=== PATIENT | male | born 1990 | race Caucasian/White ===

== ENCOUNTER 2016-09-12 16:45 | Emergency (ER) | payer MEDICAID ==
--- OUTSIDE RECORDS SUMMARY | 2016-09-12 17:05 | XMS REPORT | Continuity of Care Document ---
:1990 Author Organization [facility] Address Unavailable [place] [address] Care Team Providers Name Role Phone Unavailable Primary Care Provider Unavailable Source Comments This disclosure is being made pursuant to the [employer] program and maynot contain all information available regarding this patient.[facility] Active Allergies and Adverse Reactions Not on File Current Medications Be aware that medications may not be up to date as of this document. Alwaysverify current medications with the patient. Not on file Active Problems Not on file Most Recent Encounters Date Type Specialty Providers Description 06/17/2016 Data Import Immunizations Name Dates Previously Given Next Due PPD Test 01/05/2002 Td, preservative free 01/05/2002 Social History Tobacco Use Types Packs/Day Years Used Date Never Smoker Last Filed Vital Signs Vital Sign Reading Time Taken Blood Pressure 116/78 10/03/2014 3:25 PM CDT Pulse 88 10/03/2014 3:25 PM CDT Temperature 36.8 C (98.2 F) 10/03/2014 3:25 PM CDT Respiratory Rate 18 10/03/2014 3:25 PM CDT Height 1.778 m (5' 10") 10/03/2014 3:25 PM CDT Weight 119.75 kg (264 lb) 10/03/2014 3:25 PM CDT Body Mass Index 37.88 10/03/2014 3:25 PM CDT Oxygen Saturation - - Plan of Care Health Maintenance Due Date Last Done Comments HPV Vaccine (9-26YO) (1 of 3 - Male 3 Dose Series) 2001 Tetanus/Pertussis (2 - Tdap) 2009 01/05/2002 Influenza Immunization (#1) 2016 Results from Last 3 Months Not on file
--- OUTSIDE RECORDS SUMMARY | 2016-09-12 17:06 | XMS REPORT | Continuity of Care Document ---
:1990 Author Organization [facility] ([facility]) Address [address] [place] [address] Phone [phone] Care Team Providers Name Role Phone Juanis Edmond Primary Care Provider [phone] Source Comments This disclosure is being made pursuant to the Care Everywhere program, applicable federal and state laws, and may not contain all informaitonavailable regarding this patient.[facility] ([facility]) Active Allergies and Adverse Reactions Allergen Noted Date Severity Reactions Comments Sulfadoxine Conjunctivitis,Pruritus Current Medications Prescription Sig. Disp. Refills Start Date End Date Status aripiprazole 10 mg take 10 mg by Active tablet mouth daily. clonazePAM 0.5 mg tablet take 0.25 mg by Active mouth daily. Take 0.25 mg (1/2 Tab) [place]-3 Fatty Acids take 1 Cap by 10/21/2008 Active (FISH OIL CONCENTRATE) mouth daily. methylphenidate take 36 mg by Active (CONCERTA) 36 mg CR mouth Every tablet morning. methylphenidate 54 mg CR take 54 mg by Active tablet mouth Every morning. ACETYLCARNITINE HCL take by mouth Active (ACETYL L-CARNITINE PO) daily. TAKE 500 MG clindamycin (CLEOCIN) take 1 Cap by 28 Cap 0 12/16/2008 Active 300 mg capsule mouth 4 times daily for 7 days. Indications: infection chlorhexidine (PERIDEX) take 5 mL by mouth 4731 mL 0 12/16/2008 Active 0.12 % solution 2 times daily. Swish and spit twice a day, then nothing by mouth for 30 minutes., Indications: Mouth Infection Prevention Active Problems Not on file Social History Tobacco Use Types Packs/Day Years Used Date Never Assessed Last Filed Vital Signs Vital Sign Reading Time Taken Blood Pressure 117/67 12/16/2008 4:36 PM CDT Pulse 86 12/16/2008 4:36 PM CDT Temperature 36.5 C (97.7 F) 11/07/2008 8:00 AM CDT Respiratory Rate 20 11/07/2008 8:00 AM CDT Height 1.74 m (5' 8.5") 10/21/2008 11:09 AM CDT Weight 66 kg (145 lb 8.1 oz) 11/06/2008 6:54 PM CDT Body Mass Index - - Oxygen Saturation 98% 11/06/2008 12:45 PM CDT Plan of Care Health Maintenance Due Date Last Done Comments Hepatitis B Vaccine (1 of 3 - Primary Series) 1990 HPV Vaccine (1 of 3 - Male 3 Dose Series) 2001 Tdap Vaccine 2001 Lipid Disorder Screening 2008 MMR Vaccine 2008 Td Vaccine 2008 Varicella Vaccine (1 of 2 - Adult - No Evidence of 2008 Immunity) Influenza Vaccine: Seasonal (#1) 02/02/2016 Results from Last 3 Months Not on file
--- NOTE | 2016-09-12 17:23 | ERNOTE ---
Medical Problem HPI - Narrative Date of Service: 09/12/16 - General Chief Complaint: Nausea/Vomiting Time Seen by Provider: 09/12/16 16:51 Source: patient Exam Limitations: no limitations - Immun/Allergies/Home Medications Immunizations: IMMUNIZATION HX Immunizations Up to Date Yes History of Influenza Vaccine No Hx Pneumococcal Vaccination No Allergies/Adverse Reactions: Allergies Sulfa (Sulfonamide Antibiotics) Allergy (Unknown, Verified 09/12/16 16:52) Home Medications: HOME MEDICATIONS metFORMIN HCL [Glucophage] 500 mg PO BID 06/02/16 [Last Taken Unknown] Cephalexin [Keflex] 500 mg PO DAILY 09/12/16 [Last Taken Unknown] - History of Present History Narrative: Pt. comes in with c/o intermittent R mid abd pain that started two days after he developed NVD three days ago. Pt. denies any fever, chills, inability to eat or drink, constipation, recent cough or cold, chest pain, sob,alleviating or aggravating factors.Pt. has a hx of fatty liver disease and diabetes. Review of Systems - Review of Systems Constitutional: Present: no symptoms reported. Absent: recent illness, fever, chills, weakness, fatigue, malaise EYE: Present: no symptoms reported ENT: Present: no symptoms reported Respiratory: Present: no symptoms reported. Absent: shortness of breath, cough , wheezing Cardiology: Present: no symptoms reported. Absent: chest pain, palpitations, edema Gastrointestinal/Abdominal: Present: no symptoms reported Genitourinary: Present: no symptoms reported Musculoskeletal: Present: no symptoms reported. Absent: back pain, joint pain Skin: Present: no symptoms reported Neurological: Present: no symptoms reported. Absent: anxiety, headache, numbness, tingling All Other Systems: All systems neg except as marked - Patient's Past Medical History Patient History - Medical: Diabetes Type 2, Obesity Patient History - Cardiac/Respiratory: No pertinent hx Patient History - Cancer: No Hx of Cancer Patient History - Surgical Procedures: Ear Tubes, T & A, Other Patient History - Other: None - Social History Living Situations: home Psych History: Hx of Depression Smoking Status: Current every day smoker Have you smoked in the past 12 months: Yes Alcohol Use: rarely Drug Use: none - Immunizations Immunizations Up to Date: Yes Hx Pneumococcal Vaccination: No History of Influenza Vaccine: No Physical Exam - Physical Exam General Appearance: Present: wd/wn, alert, no apparent distress Eye Exam: Normal inspection: bilateral, PERRL: bilateral, EOMI: bilateral Ears, Nose, Throat: Present: normal ENT inspection, normal pharynx Neck: Present: normal inspection, nontender. Absent: lymphadenopathy (R), lymphadenopathy (L) Respiratory: Present: no respiratory distress, normal breath sounds, no accessory muscle use, chest nontender, lungs clear Cardiovascular/Chest: Present: regular rate, rhythm, no murmur, normal peripheral pulses Gastrointestinal/Abdominal: Present: normal bowel sounds, nondistended, soft, no organomegaly, tenderness - RM abdomen pain Back Exam: Present: normal inspection, normal range of motion, no CVA tenderness , no vertebral tenderness Extremity Exam: Present: normal inspection, non-tender, normal range of motion, no edema Neurological Exam: Present: alert, oriented, normal mood/affect Skin Exam: Present: normal color, warm/dry. Absent: pallor, skin rash ED Progress - Date and Time Seen: Date and Time: 09/12/16 20:45 Discussed changes available to patient for diabetic medication change and he would like to discuss with his PCP. Educatied pt. on decreasing fat in diet. Pt. able to hold down water and has not vomited since arrival. - Results and Orders Patient's Lab Results:: I have reviewed the patient's lab results. - Vital Signs Patient's Vital Signs:: I have reviewed the patient's vital signs. Vital Signs: Vital Signs 09/12/16 16:49 Temperature 36.0 C L Pulse Rate 104 H Respiratory 12 Rate Blood Pressure 159/88 O2 Sat by Pulse 96 Oximetry - CT/Ultrasound CT/Ultrasound Narrative: CT abd with diffuse fatty liver disease. - Progress/Reassessment Chief Complaint: Nausea/Vomiting Departure - Departure Clinical Impression: Fatty liver disease, nonalcoholic Diabetes Qualifiers: Diabetes mellitus type: type 2 Diabetes mellitus complication status: without complication Diabetes mellitus intermediate insulin use: without terminal makeup operator use Qualified Code(s): E11.9 - Type 2 diabetes mellitus without complications Disposition: Home self-care Condition: Good Instructions: Hepatomegaly, Liver Failure, Nonalcoholic Fatty Liver Disease Diet Additional Instructions: Please follow up with primary provider as planned Referrals: [Primary Care Provider] -
[2016-09-12 17:24] LABS: Hematocrit 45.7 % (42.0-52.0); Hemoglobin 15.4 gm/dL (13.5-18.0); Mean Cell Volume 81.8 fl (78-100); Mean Corpuscular Hemoglobin 27.5 pg (27-31); Mean Corpuscular Hgb Conc 33.7 g/dl (32-36); Neutrophil # 6.8 K/mm3 (1.3-6.0); Neutrophil % 60.4 % (42-75.0); Platelet Count 291 K/mm3 (150-450); Red Blood Count 5.59 M/mm3 (4.7-6.0); Red Cell Distribution Width 12.4 % (11.5-14.0); White Blood Count 11.3 K/mm3 (4.0-10.5)
[2016-09-12 17:36] LABS: Albumin * 4.1 gm/dl (3.4-5.0); Anion Gap 16.1 mmol/L (6.8-13.8); BUN/Creatinine Ratio 10.2 (9.0-21.6); Bilirubin, Total 0.3 mg/dL (0.0-1.1); Ca. Corrected For Albumin 9.6 mg/dL (8.4-10.2); Potassium 4.1 mmol/L (3.4-4.6)
[2016-09-12 17:41] LABS: Urine Appearance Clear; Urine Bilirubin Negative (NEGATIVE); Urine Blood 10 /ul (NEGATIVE); Urine Color Yellow; Urine Ketone Negative (NEGATIVE); Urine Nitrite Negative (NEGATIVE); Urine Protein Negative (NEGATIVE); Urine Urobilinogen Normal (NORMAL); Urine WBC None Seen /hpf (0-5)
[2016-09-12 17:42] LABS: Urine Bacteria None Seen; Urine RBC 0-5 /hpf (0-5)
[2016-09-12] MEDS ORDERED: DIATRIZOATE MEGLU/DIATRIZO SOD 30 ML BTL ONE (18:08)
[2016-09-12 18:16] VITALS: BP 155/98
== END 2016-09-12 21:07 | disposition home or self-care (01) ==
LOC: ER 16:45
DX: K76.0 Fatty (change of) liver, not elsewhere classified (principal); E11.9 Type 2 diabetes mellitus without complications; Z72.0 Tobacco use

== ENCOUNTER 2016-09-24 22:08 | Emergency (ER) | payer MEDICAID ==
[2016-09-24 22:20] VITALS: BP 146/79
--- OUTSIDE RECORDS SUMMARY | 2016-09-24 22:30 | XMS REPORT | Continuity of Care Document ---
:1990 Author Organization [facility] ([facility]) Address [address] [place] [address] Phone [phone] Care Team Providers Name Role Phone Juanis Edmond Primary Care Provider [phone] Source Comments This disclosure is being made pursuant to the Care Everywhere program, applicable federal and state laws, and may not contain all informaitonavailable regarding this patient.[facility] ([facility]) Active Allergies and Adverse Reactions Allergen Noted Date Severity Reactions Comments Sulfadoxine Conjunctivitis,Pruritus Current Medications Prescription Sig. Disp. Refills Start Date End Date Status aripiprazole 10 mg take 10 mg by Active tablet mouth daily. clonazePAM 0.5 mg tablet take 0.25 mg by Active mouth daily. Take 0.25 mg (1/2 Tab) [place]-3 Fatty Acids take 1 Cap by 10/21/2008 [...]
--- OUTSIDE RECORDS SUMMARY | 2016-09-24 22:30 | XMS REPORT | Continuity of Care Document ---
:1990 Author Organization [facility] Address Unavailable [place] [address] Care Team Providers Name Role Phone Unavailable Primary Care Provider Unavailable Source Comments This disclosure is being made pursuant to the [employer] program and maynot contain all information available regarding this patient.[facility] Active Allergies and Adverse Reactions Not on File Current Medications Be aware that medications may not be up to date as of this document. Alwaysverify current medications with the patient. Not on file Active Problems Not on file Immunizations Name Dates Previously Given Next Due [...]
--- NOTE | 2016-09-24 22:33 | ERNOTE ---
Headache ER HPI - Narrative Date of Service: 09/24/16 - General Presenting Symptoms: headache Time Seen by Provider: 09/24/16 22:25 Source: patient Exam Limitations: no limitations - Immun/Allergies/Home Medications Immunizations: IMMUNIZATION HX Immunizations Up to Date No History of Influenza Vaccine No Hx Pneumococcal Vaccination No Allergies/Adverse Reactions: Allergies Sulfa (Sulfonamide Antibiotics) Allergy (Unknown, Verified 09/24/16 22:20) Home Medications: HOME MEDICATIONS metFORMIN HCL [Glucophage] 500 mg PO BID 06/02/16 [Last Taken Unknown] Cephalexin [Keflex] 500 mg PO DAILY 09/12/16 [Last Taken Unknown] - History of Present Illness Narrative: 25 year old male states that he became ill at work this evening with headache and then had 4 episodes of vomiting. He's had some congestion and just generally not feeling well Quality: Present: achy Severity Maximum: Present: mild Review of Systems - Review of Systems Constitutional: Present: See HPI EYE: Present: no symptoms reported ENT: Present: See HPI Respiratory: Present: See HPI Cardiology: Present: no symptoms reported Gastrointestinal/Abdominal: Present: See HPI Genitourinary: Present: no symptoms reported Musculoskeletal: Present: no symptoms reported Skin: Present: no symptoms reported Neurological: Present: no symptoms reported Endocrine: Present: no symptoms reported Hematologic/Lymphatic: Present: no symptoms reported Psych: Present: no symptoms reported All Other Systems: All systems neg except as marked - Patient's Past Medical History Patient History - Medical: Diabetes Type 2, Obesity, Other Patient History - Cardiac/Respiratory: No pertinent hx Patient History - Cancer: No Hx of Cancer Patient History - Surgical Procedures: Ear Tubes, T & A, Other Patient History - Other: None - Social History Living Situations: home Psych History: Hx of Depression Smoking Status: Former smoker Have you smoked in the past 12 months: Yes Alcohol Use: rarely Drug Use: none - Immunizations Immunizations Up to Date: No Hx Pneumococcal Vaccination: No History of Influenza Vaccine: No Physical Exam - Physical Exam General Appearance: Present: no apparent distress, obese Eye Exam: Normal inspection: bilateral, PERRL: bilateral Ears, Nose, Throat: Present: normal ENT inspection, H, normal pharynx Neck: Present: normal inspection, nontender Respiratory: Present: no respiratory distress, normal breath sounds, no accessory muscle use, chest nontender, lungs clear Cardiovascular/Chest: Present: regular rate, rhythm, no murmur, normal peripheral pulses Gastrointestinal/Abdominal: Present: normal bowel sounds, nontender, nondistended, soft, no organomegaly Rectal Exam: Present: deferred Back Exam: Present: normal inspection, normal range of motion, no CVA tenderness , no vertebral tenderness Neurological Exam: Present: alert, oriented, normal mood/affect, no motor/ sensory deficits Skin Exam: Present: normal color, warm/dry Lymphatic Exam: Present: no adenopathy ED Progress - Results and Orders Patient's Lab Results:: I have reviewed the patient's lab results. - Vital Signs Patient's Vital Signs:: I have reviewed the patient's vital signs. Vital Signs: Vital Signs 09/24/16 22:14 Temperature 36.5 C Pulse Rate 102 H Respiratory 18 Rate Blood Pressure 146/79 O2 Sat by Pulse 96 Oximetry - Progress/Reassessment Chief Complaint: Headache Progress:: Improved Progress Note-Subjective: 09/24/16 23:06 Negative strep negative flu CBC consistent with a viral illness Departure Clinical Impression: Viral syndrome - Departure Disposition: Home self-care Condition: Fair Instructions: Rehydration, Adult, Form - Return To Work
[2016-09-24 22:40] LABS: Hematocrit 42.6 % (42.0-52.0); Hemoglobin 14.5 gm/dL (13.5-18.0); Mean Cell Volume 82.9 fl (78-100); Mean Corpuscular Hemoglobin 28.2 pg (27-31); Mean Platelet Volume 9.8 fl (6.0-9.5); Neutrophil # 6.6 K/mm3 (1.3-6.0); Neutrophil % 56.2 % (42-75.0); Platelet Count 282 K/mm3 (150-450); Red Blood Count 5.14 M/mm3 (4.7-6.0); Red Cell Distribution Width 12.3 % (11.5-14.0); White Blood Count 11.8 K/mm3 (4.0-10.5)
== END 2016-09-24 23:14 | disposition home or self-care (01) ==
LOC: ER 22:08
DX: B97.89 Other viral agents as the cause of diseases classified elsewhere (principal); E11.9 Type 2 diabetes mellitus without complications; Z87.891 Personal history of nicotine dependence

== ENCOUNTER 2016-09-26 16:31 | Emergency (ER) | payer MEDICAID ==
[2016-09-26 16:31] VITALS: BP 146/79
[2016-09-26] MEDS ORDERED: TETRACAINE HCL 150 DROP BTL ONE (16:57)
--- OUTSIDE RECORDS SUMMARY | 2016-09-26 17:04 | XMS REPORT | Continuity of Care Document ---
:1990 Author Organization [email or web address] Address Unavailable [place] [address] Care Team Providers Name Role Phone Unavailable Primary Care Provider Unavailable Source Comments This disclosure is being made pursuant to the [employer] program and maynot contain all information available regarding this patient.[email or web address] Active Allergies and Adverse Reactions Not on [...]
--- OUTSIDE RECORDS SUMMARY | 2016-09-26 17:04 | XMS REPORT | Continuity of Care Document ---
:1990 Author Organization [facility] ([facility]) Address [address] [place] [address] Phone [phone] Care Team Providers Name Role Phone Juanis Edmond Primary Care Provider [phone] Source Comments This disclosure is being made pursuant to the Care Everywhere program, applicable federal and state laws, and may not contain all informaitonavailable regarding this patient.[facility] ([facility]) Active Allergies and Adverse Reactions Allergen Noted Date Severity Reactions Comments Sulfadoxine Conjunctivitis,Pruritus Current Medications Prescription Sig. Disp. Refills Start Date End Date Status aripiprazole 10 mg take 10 mg by Active tablet mouth daily. clonazePAM 0.5 mg tablet take 0.25 mg by Active mouth daily. Take 0.25 mg (1/2 Tab) [place]-3 Fatty Acids take 1 Cap by 10/21/2008 [...]
[2016-09-26] MEDS ORDERED: TETRACAINE HCL 150 DROP BTL RIGHTEYE ONE (17:25)
--- NOTE | 2016-09-26 18:06 | ERNOTE ---
ENT HPI Presenting Symptoms: eye pain Time Seen by Provider: 09/26/16 16:54 Source: patient Exam Limitations: no limitations - Immun/Allergies/Home Medications Immunizations: IMMUNIZATION HX Immunizations Up to Date No History of Influenza Vaccine No Hx Pneumococcal Vaccination No Allergies/Adverse Reactions: Allergies Allergy/AdvReac Type Severity Reaction Status Date / Time Sulfa (Sulfonamide Allergy Unknown Verified 09/26/16 16:48 Antibiotics) Home Medications: HOME MEDICATIONS metFORMIN HCL [Glucophage] 500 mg PO BID 06/02/16 [Last Taken Unknown] Cephalexin [Keflex] 500 mg PO DAILY 09/12/16 [Last Taken Unknown] Erythromycin Base [Erythromycin Ophthalmic Ointment] 1 cm RIGHTEYE QID #1 gm [Last Taken Unknown] HYDROcodone/ACETAMINOPHEN [Hydrocodon-Acetaminophen 5-325] 1 each PO BID PRN #3 tablet 09/26/16 [Last Taken Unknown] - History of Present Illness Narrative: 25-year-old male presented to the emergency room for right eye pain. Patient states when he woke up this morning he rubbed his right eye. Right eye has crust and pain. Light sensitive and tearing present. Date (Duration): 09/26/16 Severity: Present: mild ENT Location: Present: eye (R) Prearrival Treatment: Present: no prearrival treatment Modifying Factors - Improves: Reports: rest, lying down Modifying Factors - Worsens: Reports: other - light Associated Symptoms - ENT: Reports: headache, other - light sensitive. Denies: foreign body Review of Systems - Review of Systems Constitutional: Present: no symptoms reported EYE: Present: see HPI, eye pain, eye discharge, tearing. Absent: blurred vision , double vision, vision changes ENT: Present: no symptoms reported Respiratory: Present: no symptoms reported Cardiology: Present: no symptoms reported Gastrointestinal/Abdominal: Present: no symptoms reported Genitourinary: Present: no symptoms reported Musculoskeletal: Present: no symptoms reported Skin: Present: no symptoms reported Neurological: Present: no symptoms reported Endocrine: Present: no symptoms reported Hematologic/Lymphatic: Present: no symptoms reported Psych: Present: no symptoms reported - Patient's Past Medical History Patient History - Medical: Diabetes Type 2, Obesity, Other Patient History - Cardiac/Respiratory: No pertinent hx Patient History - Cancer: No Hx of Cancer Patient History - Surgical Procedures: Ear Tubes, T & A, Other Patient History - Other: None - Social History Living Situations: home Psych History: Hx of Depression Smoking Status: Former smoker Smoking Stop Date: 09/20/16 Alcohol Use: rarely Drug Use: none - Immunizations Immunizations Up to Date: No Hx Pneumococcal Vaccination: No History of Influenza Vaccine: No Physical Exam - Physical Exam Narrative: Patient's right eye is reddened. 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 General Appearance: Present: wd/wn Eye Exam: PERRL: bilateral, Sclera injection: right, Eye drainage: right Ears, Nose, Throat: Present: normal ENT inspection Neck: Present: normal inspection Respiratory: Present: no respiratory distress Cardiovascular/Chest: Present: regular rate, rhythm Gastrointestinal/Abdominal: Present: normal bowel sounds Extremity Exam: Present: normal inspection Neurological Exam: Present: alert, oriented, normal mood/affect Skin Exam: Present: normal color Lymphatic Exam: Present: no adenopathy ED Progress - Vital Signs Vital Signs: Vital Signs 09/26/16 16:41 Temperature 36.5 C Pulse Rate 102 H Respiratory 14 Rate Blood Pressure 146/79 O2 Sat by Pulse 96 Oximetry - Progress/Reassessment Chief Complaint: Eye Injury/Trauma Progress:: Improved Procedures Eye Location: right eye Tetracaine Drops Administered: Yes Cyclogel 2 Drops Administered: right eye Eye - Cornea: Right: examined w/fluorescein, fluorescein dye uptake, abrasion - to the left of eye, midline. Eye Irrigated w/ Saline (mls): 10 Antibiotic Ointment/Drps Admin: right eye Complications: Pt collins procedure well Departure Clinical Impression: Corneal abrasion, right Qualifiers: Encounter type: initial encounter Qualified Code(s): S05.01XA - Injury of conjunctiva and corneal abrasion without foreign body, right eye, initial encounter - Departure Disposition: Home Follow Up Needed Condition: Stable Instructions: Form - Excuse from Work, School, or Physical Activity, Corneal Abrasion, [id number] Additional Instructions: Take his current home medications. Take antibiotics as directed. May take when necessary pain medications for pain. Follow-up with eye doctor in a few days if needed. Tonight go home and rest. return To the emergency room if symptoms persist or if pain is not controlled with pain medication. Prescriptions: Erythromycin Base [Erythromycin Ophthalmic Ointment] 1 cm KINZAE NELSOND #1 gm HYDROcodone/ACETAMINOPHEN [Hydrocodon-Acetaminophen 5-325] 1 each PO BID PRN #3 tablet PRN Reason: pain
== END 2016-09-26 17:50 | disposition home or self-care (01) ==
LOC: ER 16:31
DX: S05.01XA Injury of conjunctiva and corneal abrasion without foreign body, right eye, initial encounter (principal); E11.9 Type 2 diabetes mellitus without complications; Z72.0 Tobacco use

== ENCOUNTER 2016-10-29 23:44 | Emergency (ER) | payer MEDICAID ==
--- OUTSIDE RECORDS SUMMARY | 2016-10-30 01:08 | XMS REPORT | Continuity of Care Document ---
:1990 Author Organization [facility] ([facility]) Address [address] [place] [address] Phone [phone] Care Team Providers Name Role Phone Juanis Edmond Primary Care Provider [phone] Source Comments This disclosure is being made pursuant to the Care Everywhere program, applicable federal and state laws, and may not contain all informaitonavailable regarding this patient.[facility] ([facility]) Active Allergies and Adverse Reactions Allergen Noted Date Severity Reactions Comments Sulfadoxine Conjunctivitis,Pruritus Current Medications Prescription Sig. Disp. Refills Start Date End Date Status aripiprazole 10 mg take 10 mg by Active tablet mouth daily. clonazePAM 0.5 mg tablet take 0.25 mg by Active mouth daily. Take 0.25 mg (1/2 Tab) [place]-3 Fatty Acids take 1 Cap by 10/21/2008 [...]
--- OUTSIDE RECORDS SUMMARY | 2016-10-30 01:08 | XMS REPORT | Continuity of Care Document ---
:1990 Author Organization [facility] Address Unavailable [place] [address] Care Team Providers Name Role Phone Unavailable Primary Care Provider Unavailable Source Comments This disclosure is being made pursuant to the [email or web address] program and maynot contain all information available regarding this patient.[facility] Active Allergies and Adverse Reactions Not on File Current Medications Be aware that medications may not be up to date as of this document. Alwaysverify current medications with the patient. Not on file Active Problems Not on file Most Recent Encounters Date Type Specialty Providers Description 09/27/2016 Data Import Immunizations Name Dates Previously Given [...]
--- NOTE | 2016-10-30 01:09 | ERNOTE ---
Medical Problem HPI - Narrative Date of Service: 10/30/16 - General Chief Complaint: Nausea/Vomiting Time Seen by Provider: 10/30/16 01:02 Source: patient, other - S.O. Exam Limitations: no limitations - Immun/Allergies/Home Medications Immunizations: IMMUNIZATION HX Immunizations Up to Date Yes History of Influenza Vaccine No Hx Pneumococcal Vaccination No Allergies/Adverse Reactions: Allergies Sulfa (Sulfonamide Antibiotics) Allergy (Unknown, Verified 10/30/16 00:18) Home Medications: HOME MEDICATIONS metFORMIN HCL [Glucophage] 1,000 mg PO BID 06/02/16 [Last Taken Unknown] Ondansetron [Zofran Odt] 4 mg PO Q6H PRN #7 tab 10/30/16 [Last Taken Unknown] - History of Present History Narrative: NAUSEA AND VOMITING AND DIARRHEA FOR THE PAST 2-3 HOURS. SAYS SHE HAD A APSXGER CHELSEA HAMBURGER EARLIER TONIGHT. NO FEVER. 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 HE IS NIDDM AND ON ORAL MEDS BUT DOES NOT FOLLOW HIS BGM AND HAS NO IDEA WHERE IS CURRENTLY STANDS. HE V X 1 AND HAD D X 3 AND IS STILL NAUSEATED. Review of Systems - Review of Systems Constitutional: Present: See HPI, recent illness EYE: Present: no symptoms reported ENT: Present: no symptoms reported Respiratory: Present: no symptoms reported Cardiology: Present: no symptoms reported Gastrointestinal/Abdominal: Present: nausea, vomiting, diarrhea Genitourinary: Present: no symptoms reported Musculoskeletal: Present: no symptoms reported Skin: Present: no symptoms reported Neurological: Present: no symptoms reported Endocrine: Present: See HPI Hematologic/Lymphatic: Present: no symptoms reported Psych: Present: no symptoms reported All Other Systems: All systems neg except as marked - Patient's Past Medical History Patient History - Medical: Diabetes Type 2, Obesity, Other Patient History - Cardiac/Respiratory: No pertinent hx Patient History - Cancer: No Hx of Cancer Patient History - Surgical Procedures: Ear Tubes, T & A, Other Patient History - Other: None - Social History Living Situations: home Psych History: Hx of Depression Smoking Status: Current every day smoker Patient requests Smoking Cessation Consult: No Initiate information on Smoking Cessation: No Alcohol Use: rarely Drug Use: none - Immunizations Immunizations Up to Date: Yes Hx Pneumococcal Vaccination: No History of Influenza Vaccine: No Physical Exam - Physical Exam General Appearance: Present: wd/wn, alert, mild distress Respiratory: Present: no respiratory distress, normal breath sounds, no accessory muscle use, chest nontender, lungs clear Cardiovascular/Chest: Present: regular rate, rhythm, no murmur, normal peripheral pulses Gastrointestinal/Abdominal: Present: normal bowel sounds, soft, no organomegaly , tenderness - PERIUMBILICAL Back Exam: Present: normal inspection, normal range of motion, no vertebral tenderness, CVA tenderness (R) - MINIMAL Neurological Exam: Present: alert, oriented Skin Exam: Present: normal color ED Progress - Results and Orders Patient's Lab Results:: I have reviewed the patient's lab results. Results and Orders: finger stick gluc. here after fluids = 235. - Vital Signs Vital Signs: Vital Signs 10/30/16 00:15 Temperature 36.6 C Pulse Rate 95 Respiratory 18 Rate Blood Pressure 145/91 O2 Sat by Pulse 98 Oximetry - Progress/Reassessment Chief Complaint: Nausea/Vomiting Progress:: Improved - no vomiting or diarrhea since iv fluids given and zofran given. Plan - Plan Plan: RVIEW OF RECORDS SHOW HE WAS HERE WITH URI SX'S AND VOMITING X 4 LAST MONTH ALSO. Departure - Departure Clinical Impression: Nausea vomiting and diarrhea Disposition: Home Follow Up Needed Condition: Good Instructions: Viral Gastroenteritis, Adult, [id number] Additional Instructions: watch your blood glucose closely at home and follow uup with your family doctor if not improving or if your blood glucoses are continually running high as your doctor may need to adjust your treatment for you to get better control. Referrals: Maura Steve, PAC [Primary Care Provider] - Prescriptions: Ondansetron [Zofran Odt] 4 mg PO Q6H PRN #7 tab PRN Reason: Vomiting
[2016-10-30] MEDS ORDERED: ONDANSETRON HCL/PF 2 MG/ML VIAL ONE (01:51)
[2016-10-30] MEDS: NORMAL SALINE 1,000 ML IV ONE (02:03)
[2016-10-30] MEDS: ONDANSETRON HCL/PF 2 MG/ML VIAL IV ONE (02:03)
[2016-10-30 04:36] VITALS: BP 147/79
== END 2016-10-30 03:38 | disposition home or self-care (01) ==
LOC: ER 23:44
DX: R11.2 Nausea with vomiting, unspecified (principal); R19.7 Diarrhea, unspecified; F17.210 Nicotine dependence, cigarettes, uncomplicated; E11.9 Type 2 diabetes mellitus without complications

== ENCOUNTER 2016-11-07 21:30 | Emergency (ER) | payer MEDICAID ==
[2016-11-07 21:43] VITALS: BP 145/78
--- OUTSIDE RECORDS SUMMARY | 2016-11-07 21:53 | XMS REPORT | Continuity of Care Document ---
:1990 Author Organization [employer] Address Unavailable [place] [address] Care Team Providers Name Role Phone Unavailable Primary Care Provider Unavailable Source Comments This disclosure is being made pursuant to the [employer] program and maynot contain all information available regarding this patient.[facility] Active Allergies and Adverse Reactions Not on [...]
--- OUTSIDE RECORDS SUMMARY | 2016-11-07 21:53 | XMS REPORT | Continuity of Care Document ---
:1990 Author Organization [facility] ([facility]) Address [address] [place] [address] Phone [phone] Care Team Providers Name Role Phone Juanis Edmond Primary Care Provider [phone] Source Comments This disclosure is being made pursuant to the Care Everywhere program, applicable federal and state laws, and may not contain all informaitonavailable regarding this patient.[facility] ([facility]) Active Allergies and Adverse Reactions Allergen Noted Date Severity Reactions Comments Sulfadoxine Conjunctivitis,Pruritus Current Medications Prescription Sig. Disp. Refills Start Date End Date Status aripiprazole 10 mg take 10 mg by Active tablet mouth daily. clonazePAM 0.5 mg tablet take 0.25 mg by Active mouth daily. Take 0.25 mg (1/2 Tab) [place]-3 Fatty Acids take 1 Cap by 10/21/2008 [...]
[2016-11-07] MEDS ORDERED: ERYTHROMYCIN BASE 3.5 APPL TUBE ONE (22:20)
--- NOTE | 2016-11-07 22:22 | ERNOTE ---
ENT HPI Presenting Symptoms: other - right eye is irritated Time Seen by Provider: 11/07/16 21:41 Source: patient Exam Limitations: no limitations - Immun/Allergies/Home Medications Immunizations: IMMUNIZATION HX Immunizations Up to Date Yes History of Influenza Vaccine No Hx Pneumococcal Vaccination Yes Allergies/Adverse Reactions: Allergies Allergy/AdvReac Type Severity Reaction Status Date / Time Sulfa (Sulfonamide Allergy Unknown Verified 11/07/16 21:44 Antibiotics) Home Medications: HOME MEDICATIONS metFORMIN HCL [Glucophage] 1,000 mg PO BID 06/02/16 [Last Taken Unknown] Atorvastatin Calcium 20 mg PO DAILY 11/07/16 [Last Taken Unknown] - History of Present Illness Narrative: pt woke up this am with right eye having greenish discharge and redness. it feels irritated. Pt does not have any sensation fo FB in left right eye. Review of Systems - Review of Systems Constitutional: Present: no symptoms reported EYE: Present: see HPI ENT: Present: no symptoms reported Respiratory: Present: no symptoms reported Cardiology: Present: no symptoms reported Gastrointestinal/Abdominal: Present: no symptoms reported Genitourinary: Present: no symptoms reported Musculoskeletal: Present: no symptoms reported Skin: Present: no symptoms reported - Patient's Past Medical History Patient History - Medical: Diabetes Type 2, Obesity, Other Patient History - Cardiac/Respiratory: No pertinent hx Patient History - Cancer: No Hx of Cancer Patient History - Surgical Procedures: Ear Tubes, T & A, Other Patient History - Other: None - Social History Living Situations: home Psych History: Hx of Depression Smoking Status: Current some day smoker Alcohol Use: rarely Drug Use: none - Immunizations Immunizations Up to Date: Yes Hx Pneumococcal Vaccination: Yes History of Influenza Vaccine: No Physical Exam - Physical Exam General Appearance: Present: wd/wn, alert, no apparent distress Eye Exam: Normal inspection: left - conjunctiva of right eye is injected, there is NO FB in right eye. eyelids are normal, PERRL: right, EOMI: right ED Progress - Vital Signs Patient's Vital Signs:: I have reviewed the patient's vital signs. Vital Signs: Vital Signs 11/07/16 21:36 Temperature 37.1 C Pulse Rate 108 H Respiratory 13 Rate Blood Pressure 145/78 O2 Sat by Pulse 96 Oximetry - Progress/Reassessment Chief Complaint: Eye Injury/Trauma Plan - Plan Plan: this patient has conjunctivitis and will be treated with EES ointment. the rest of the ointment will be given to pt. for use daily. Also will have pt follow up with PCP Departure Clinical Impression: Conjunctivitis, right eye Qualifiers: Conjunctivitis type: acute Acute conjunctivitis type: bacterial Qualified Code( s): H10.31 - Unspecified acute conjunctivitis, right eye - Departure Disposition: Home self-care Condition: Good Instructions: Bacterial Conjunctivitis, [id number] Referrals: Maura Steve PAC [Primary Care Provider] -
[2016-11-07] MEDS ORDERED: ERYTHROMYCIN BASE 3.5 APPL TUBE RIGHTEYE ONE (22:26)
== END 2016-11-07 22:30 | disposition home or self-care (01) ==
LOC: ER 21:30
DX: H10.31 Unspecified acute conjunctivitis, right eye (principal); Z72.0 Tobacco use; E11.9 Type 2 diabetes mellitus without complications

== ENCOUNTER 2016-12-02 02:47 | Emergency (ER) | payer MEDICAID ==
[2016-12-02 02:54] VITALS: BP 133/85
[2016-12-02] MEDS ORDERED: ONDANSETRON HCL/PF 2 MG/ML VIAL IV ONE (03:06)
[2016-12-02] MEDS ORDERED: ONDANSETRON HCL/PF 2 MG/ML VIAL ONE (03:06)
[2016-12-02] MEDS ORDERED: NORMAL SALINE 1,000 ML IV ONE (03:07)
--- NOTE | 2016-12-02 03:08 | ERNOTE ---
Medical Problem HPI - General Chief Complaint: Nausea/Vomiting Time Seen by Provider: 12/02/16 02:58 Source: patient, family Exam Limitations: no limitations - Immun/Allergies/Home Medications Immunizations: IMMUNIZATION HX Immunizations Up to Date No History of Influenza Vaccine No Hx Pneumococcal Vaccination Yes Allergies/Adverse Reactions: Allergies Sulfa (Sulfonamide Antibiotics) Allergy (Unknown, Verified 12/02/16 02:54) Home Medications: HOME MEDICATIONS metFORMIN HCL [Glucophage] 1,000 mg PO BID 06/02/16 [Last Taken Unknown] Atorvastatin Calcium 20 mg PO DAILY 11/07/16 [Last Taken Unknown] - History of Present History Narrative: Pt arrived home around 23:30 last night. He and his went to [employer] for dinner an hour or two later he went to use the bathroom and began vomiting. Timing: constant Severity: moderate Review of Systems - Review of Systems Constitutional: Absent: recent illness, fever, chills EYE: Present: no symptoms reported ENT: Present: no symptoms reported Respiratory: Absent: no symptoms reported Cardiology: Absent: no symptoms reported Gastrointestinal/Abdominal: Present: See HPI. Absent: diarrhea, constipation, abdominal pain Genitourinary: Present: no symptoms reported Musculoskeletal: Present: no symptoms reported Skin: Present: no symptoms reported Neurological: Present: no symptoms reported Endocrine: Absent: excessive sweating, flushing Hematologic/Lymphatic: Present: no symptoms reported Psych: Present: no symptoms reported - Patient's Past Medical History Patient History - Medical: Diabetes Type 2, Obesity, Other Patient History - Cardiac/Respiratory: No pertinent hx Patient History - Cancer: No Hx of Cancer Patient History - Surgical Procedures: Ear Tubes, T & A, Other Patient History - Other: None - Social History Living Situations: home Psych History: Hx of Depression Smoking Status: Current every day smoker Alcohol Use: rarely Drug Use: none - Immunizations Immunizations Up to Date: No Hx Pneumococcal Vaccination: Yes History of Influenza Vaccine: No Physical Exam - Physical Exam General Appearance: Present: wd/wn, alert, no apparent distress Neck: Present: normal inspection, supple, full range of motion Respiratory: Present: no respiratory distress, normal breath sounds, lungs clear Cardiovascular/Chest: Present: regular rate, rhythm, no murmur Gastrointestinal/Abdominal: Present: normal bowel sounds, tenderness - mild LLQ. Absent: guarding, rebound Neurological Exam: Present: alert, oriented, normal mood/affect Skin Exam: Present: normal color, warm/dry ED Progress - Results and Orders Patient's Lab Results:: I have reviewed the patient's lab results. Results and Orders: Laboratory Tests 12/02/16 12/02/16 03:06 03:06 WBC 14.8 H Hgb 15.7 Hct 45.5 Plt Count 292 Sodium 135 Potassium 3.6 Chloride 96 L Carbon Dioxide 28.3 Anion Gap 14.3 H BUN 11 Creatinine 1.00 BUN/Creatinine Ratio 11.0 Random Glucose 300 H Calcium 9.5 Total Bilirubin 0.4 AST 97 H ALT 252 H Alkaline Phosphatase 162 Total Protein 8.7 H Albumin 3.9 - Vital Signs Patient's Vital Signs:: I have reviewed the patient's vital signs. Vital Signs: Vital Signs 12/02/16 02:49 Temperature 36.1 C L Pulse Rate 111 H Respiratory 18 Rate Blood Pressure 133/85 O2 Sat by Pulse 97 Oximetry - X-Ray X-Ray #1 X-Ray: abdomen Interpretation: Interp. by me X-ray Comments: No evidence of obstruction or mass - Progress/Reassessment Chief Complaint: Nausea/Vomiting Progress:: Improved Progress Note-Subjective: 12/02/16 04:06 Feeling much better. Pt has ondansetron at home. Departure - Departure Clinical Impression: Viral gastroenteritis Disposition: Home self-care Condition: Good Instructions: Viral Gastroenteritis, Adult, [id number] Additional Instructions: Take your ondansetron as needed for nausea. follow up as needed Referrals: Maura Steve, PAC [Primary Care Provider] -
[2016-12-02 03:22] LABS: Hematocrit 45.5 % (42.0-52.0); Hemoglobin 15.7 gm/dL (13.5-18.0); Mean Cell Volume 81.4 fl (78-100); Mean Corpuscular Hemoglobin 28.1 pg (27-31); Mean Corpuscular Hgb Conc 34.5 g/dl (32-36); Neutrophil # 8.5 K/mm3 (1.3-6.0); Neutrophil % 57.5 % (42-75.0); Platelet Count 292 K/mm3 (150-450); Red Blood Count 5.59 M/mm3 (4.7-6.0); Red Cell Distribution Width 11.9 % (11.5-14.0); White Blood Count 14.8 K/mm3 (4.0-10.5)
[2016-12-02 03:37] LABS: Albumin * 3.9 gm/dl (3.4-5.0); Anion Gap 14.3 mmol/L (6.8-13.8); Bilirubin, Total 0.4 mg/dL (0.0-1.1); Ca. Corrected For Albumin 9.3 mg/dL (8.4-10.2); Calcium * 9.5 mg/dL (7.9-10.9); Carbon Dioxide 28.3 mmol/L (24-32.6); Potassium 3.6 mmol/L (3.4-4.6); Total Protein 8.7 gm/dL (6.2-8.2)
--- OUTSIDE RECORDS SUMMARY | 2016-12-02 04:10 | XMS REPORT | Continuity of Care Document ---
:1990 Author Organization [facility] ([facility]) Address [address] [place] [address] Phone [phone] Care Team Providers Name Role Phone Juanis Edmond Primary Care Provider [phone] Source Comments This disclosure is being made pursuant to the Care Everywhere program, applicable federal and state laws, and may not contain all informaitonavailable regarding this patient.[facility] ([facility]) Active Allergies and Adverse Reactions Allergen Noted Date Severity Reactions Comments Sulfadoxine Conjunctivitis,Pruritus Current Medications Prescription Sig. Disp. Refills Start Date End Date Status aripiprazole 10 mg take 10 mg by Active tablet mouth daily. clonazePAM 0.5 mg tablet take 0.25 mg by Active mouth daily. Take 0.25 mg (1/2 Tab) [place]-3 Fatty Acids take 1 Cap by 10/21/2008 [...]
--- OUTSIDE RECORDS SUMMARY | 2016-12-02 04:10 | XMS REPORT | Continuity of Care Document ---
:1990 Author Organization [employer] Address Unavailable [place] [address] Care Team Providers Name Role Phone Unavailable Primary Care Provider Unavailable Source Comments This disclosure is being made pursuant to the [employer] program and maynot contain all information available regarding this patient.[facility] Active Allergies and Adverse Reactions Not on [...] Health Maintenance Due Date Last Done Comments Tetanus/Pertussis (2 - Tdap) 2009 01/05/2002 Influenza Immunization (#1) 2016 HPV Vaccine ([id number]) Aged Out No longer eligible based on patient's age to complete this topic Results from Last 3 Months Not on file
== END 2016-12-02 04:13 | disposition home or self-care (01) ==
LOC: ER 02:47
DX: A08.4 Viral intestinal infection, unspecified (principal); E11.9 Type 2 diabetes mellitus without complications; Z72.0 Tobacco use
CPT/HCPCS: 36415; 74020; 80053; 85025; 96374; 99284; J2405

== ENCOUNTER 2017-02-01 18:42 | Emergency (ER) | payer MEDICAID ==
[2017-02-01] MEDS ORDERED: KETOROLAC TROMETHAMINE 60 MG/2 ML VIAL IM ONE ×2 (19:34→19:35)
--- OUTSIDE RECORDS SUMMARY | 2017-02-01 19:35 | XMS REPORT | Clinical Summary ---
:1990 Author Organization [employer] Address Unavailable [place] [address] Care Team Providers Name Role Phone Unavailable Primary Care Provider Unavailable Source Comments This disclosure is being made pursuant to the [employer] program and maynot contain all information available regarding this patient.[employer] Allergies Not on File Current Medications Be aware that medications may not be up to date as of this document. Alwaysverify current medications with the patient. Not on file Active Problems Not on file Immunizations Name Dates Previously Given Next Due PPD Test 01/05/2002 Td, preservative free 01/05/2002 Family History Medical History Relation Name Comments Other Other No pertinent family history - Family History: Noted on Other Other No pertinent family history - Mother: Noted on Relation Name Status Comments Other Other Social History Tobacco Use Types Packs/Day Years Used Date Never Smoker Sex Assigned at Date Recorded Not on file Last Filed Vital Signs Vital Sign Reading Time Taken Blood Pressure 116/78 10/03/2014 3:25 PM CDT Pulse 88 10/03/2014 3:25 PM CDT Temperature 36.8 C (98.2 F) 10/03/2014 3:25 PM CDT Respiratory Rate 18 10/03/2014 3:25 PM CDT Oxygen Saturation - - Inhaled Oxygen Concentration - - Weight 119.7 kg (264 lb) 10/03/2014 3:25 PM CDT Height 177.8 cm (5' 10") 10/03/2014 3:25 PM CDT Body Mass Index 37.88 10/03/2014 3:25 PM CDT Plan of Treatment Health Maintenance Due Date Last Done Comments Tetanus/Pertussis (2 - Tdap) 2009 01/05/2002 INFLUENZA IMMUNIZATION (#1) 2016 Results Not on filefrom Last 3 Months
--- OUTSIDE RECORDS SUMMARY | 2017-02-01 19:36 | XMS REPORT | Summary of Care ---
:1990 Author Organization [facility] Care Team Providers Name Role Phone Maura Steve Primary Care Physician Encounter Date(s): 10/04/16 - 10/04/16 [facility] [address] [place], [place] [address] Discharge Disposition: Discharged to Home or Self Care Attending Physician: Maura Steve, PAC Admitting Physician: Maura Steve, PAC Vital Signs No data available for this section Problem List Condition Effective Dates Status Health Status Informant T2DM (type 2 diabetes Active mellitus)(Confirmed) Allergies, Adverse Reactions, Alerts Substance Reaction Severity Status sulfa drugs unknown Active Medications atorvastatin 20 mg oral tablet 1 tab(s), Oral, Daily, # 30 tab(s), 5 Refill(s), Start Date: 10/04/16 13:46:00 CDT, Pharmacy: [facility] [id number] Start Date: 10/04/16 Status: Orderedcephalexin 500 mg oral tablet 1 tab(s), Oral, TID, 0 Refill(s), Start Date: 08/25/16 13:51:00 [employer] Start Date: 08/25/16 Status: OrderedmetFORMIN 500 mg oral tablet 1 tab(s), Oral, BID, # 60 tab(s), 2 Refill(s), 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 , 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: [id number] Start Date: 08/25/16 Stop Date: 10/04/16 Status: DiscontinuedmetFORMIN 500 mg oral tablet 2 tab(s), Oral, BID, with meals, # 120 tab(s), 3 Refill(s), Start Date: 13:46:19 CDT, Pharmacy: [facility] [id number] Special Instructions: with meals Start Date: 10/04/16 Stop Date: 02/01/17 Status: OrderedmetFORMIN 500 mg oral tablet 1 tab(s), Oral, BID, # 60 tab(s), 0 Refill(s), Start Date: 08/25/16 13:51:00 [employer] Start Date: 08/25/16 Stop Date: 08/25/16 Status: Discontinued Results Patient Viewable Results Most recent to oldest [Reference Range]: 1 Total Protein [6.4-8.3 g/dL] 7.9 g/dL (10/04/16 11:34 AM) Albumin Lvl [3.5-5.2 g/dL] 4.4 g/dL (10/04/16 11:34 AM) Globulin 3.5 *NA* (10/04/16 11:34 AM) A/G Ratio [0.9-1.8] 1.3 (10/04/16 11:34 AM) Bilirubin Total [0.1-1.0 mg/dL] 0.4 mg/dL (10/04/16 11:34 AM) Bilirubin Direct [0.0-0.3 mg/dL] 0.1 mg/dL (10/04/16 11:34 AM) Alkaline Phosphatase [39-129 unit/L] 131 unit/L *HI* (10/04/16 11:34 AM) AST [0-39 unit/L] 64 unit/L *HI* (10/04/16 11:34 AM) ALT [0-40 unit/L] 181 unit/L *HI* (10/04/16 11:34 AM) Glycated Hemoglobin [4.8-6.0 %] 8.8 % *HI* (10/04/16 11:34 AM) Estimated Average Glucose 206 mg/dL *NA* (10/04/16 11:34 AM) Cholesterol Total [0-200 mg/dL] 162 mg/dL (10/04/16 11:34 AM) Triglyceride [0-199 mg/dL] 651 mg/dL *HI* (10/04/16 11:34 AM) HDL Cholesterol [40-100 mg/dL] 19 mg/dL *LOW* (10/04/16 11:34 AM) LDL Cholesterol (Direct) [0-129 mg/dL] 45 mg/dL (10/04/16 11:34 AM) Non HDL Cholesterol [0-159 mg/dL] 143 mg/dL (10/04/16 11:34 AM) Microalbumin, Ur 16 mg/L *NA* (10/04/16 11:34 AM) Creatinine, Urine MA 238.6 mg/dL *NA* (10/04/16 11:34 AM) Ur Microalb/Creat Ratio [0-29 mg/g Cr] 7 mg/g Cr (10/04/16 11:34 AM) Immunizations No data available for this section Procedures No data available for this section Social History No data available for this section Assessment and Plan No data available for this section
[2017-02-01 19:53] LABS: Hematocrit 46.4 % (42.0-52.0); Hemoglobin 15.5 gm/dL (13.5-18.0); Mean Cell Volume 83.9 fl (78-100); Mean Corpuscular Hgb Conc 33.4 g/dl (32-36); Mean Platelet Volume 10.2 fl (6.0-9.5); Neutrophil % 75.5 % (42-75.0); Platelet Count 212 K/mm3 (150-450); Red Blood Count 5.53 M/mm3 (4.7-6.0); Red Cell Distribution Width 12.2 % (11.5-14.0); White Blood Count 15.9 K/mm3 (4.0-10.5)
--- NOTE | 2017-02-01 20:26 | ERNOTE ---
<Sheridan Fenton - Last Filed: 02/01/17 21:50> Medical Problem HPI - Narrative Date of Service: 02/01/17 - General Chief Complaint: General Assessment Time Seen by Provider: 02/01/17 19:29 Source: patient, family, RN notes reviewed Exam Limitations: no limitations - Immun/Allergies/Home Medications Immunizations: IMMUNIZATION HX Immunizations Up to Date Yes History of Influenza Vaccine No Hx Pneumococcal Vaccination No Allergies/Adverse Reactions: Allergies Sulfa (Sulfonamide Antibiotics) Allergy (Unknown, Verified 02/01/17 18:53) Home Medications: HOME MEDICATIONS metFORMIN HCL [Glucophage] 1,000 mg PO BID 06/02/16 [Last Taken Unknown] Atorvastatin Calcium 20 mg PO DAILY 11/07/16 [Last Taken Unknown] - History of Present History Narrative: 26 y/o male ambulatory to the ED for RUQ pain that began without incident around 1730. He reports that the pain radiates into his back and across the upper portion of his abdomen. He last ate at 1500. He has not taken anything for pain. Date (Duration): 02/01/17 Time (Timing): 17:30 Review of Systems - Review of Systems Constitutional: Present: chills, malaise. Absent: recent illness EYE: Present: no symptoms reported ENT: Absent: nose congestion, sore throat Respiratory: Absent: shortness of breath, cough Cardiology: Absent: chest pain, palpitations, syncope Gastrointestinal/Abdominal: Present: abdominal pain. Absent: nausea, vomiting, diarrhea, constipation, eating less, drinking less Genitourinary: Absent: dysuria, hematuria Musculoskeletal: Present: back pain. Absent: neck pain, joint pain Skin: Absent: rash, lesions, lumps Neurological: Absent: headache, dizziness/light-headedness Endocrine: Present: no symptoms reported Hematologic/Lymphatic: Present: no symptoms reported Psych: Present: no symptoms reported - Patient's Past Medical History Patient History - Medical: Diabetes Type 2, Obesity, Other - Fatty liver Patient History - Cardiac/Respiratory: No pertinent hx Patient History - Cancer: No Hx of Cancer Patient History - Surgical Procedures: Ear Tubes, T & A, Other Patient History - Other: None - Social History Living Situations: home Psych History: Hx of Depression Smoking Status: Current every day smoker Alcohol Use: rarely Drug Use: none - Immunizations Immunizations Up to Date: Yes Hx Pneumococcal Vaccination: No History of Influenza Vaccine: No Physical Exam - Physical Exam General Appearance: Present: wd/wn, alert, no apparent distress, obese, other - Poor hygiene, Foul body odor Respiratory: Present: no respiratory distress, normal breath sounds, no accessory muscle use, chest nontender, lungs clear Cardiovascular/Chest: Present: regular rate, rhythm, no murmur Gastrointestinal/Abdominal: Present: normal bowel sounds, soft, tenderness - RUQ , distended - Morbidly obese. Absent: mass, hernia Back Exam: Present: normal inspection, no CVA tenderness Extremity Exam: Present: normal inspection, no edema Neurological Exam: Present: alert, oriented, normal mood/affect, no motor/ sensory deficits Skin Exam: Present: normal color, warm/dry ED Progress - Results and Orders Patient's Lab Results:: I have reviewed the patient's lab results. - Vital Signs Patient's Vital Signs:: I have reviewed the patient's vital signs. Vital Signs: Vital Signs 02/01/17 02/01/17 18:50 19:40 Temperature 37.8 C H 37.7 C H Pulse Rate 107 H 81 Respiratory 16 16 Rate Blood Pressure 148/111 118/81 O2 Sat by Pulse 98 96 Oximetry - Progress/Reassessment Chief Complaint: General Assessment Progress:: Improved Progress Note-Subjective: 02/01/17 21:18 Some improvement in pain after Toradol. Discussed lab results and need for further evaluation since his WBC is 15.9. He reports having an infected toenail that may be contributing to the elevation, however this has been going on for several weeks and does not appear acutely inflamed. CT scan ordered. 02/01/17 21:50 Complains of nausea, Zofran ordered. Refuses to have an IV for CT after 2 unsuccessful attempts. Wants to go home and not have the CT - informed that he would have to sign out AMA. Agrees to have CT with just oral contrast. - Transfer of Care Physician Sign Out: Sheridan Fenton Receiving Physician: Carlos Lawrence Pending Results: CT/MRI results Expected Disposition: Discharge Departure - Departure Clinical Impression: Abdominal pain Qualifiers: Abdominal location: right upper quadrant Qualified Code(s): R10.11 - Right upper quadrant pain Disposition: Home Follow Up Needed Condition: Good Instructions: Abdominal Pain, Adult, [id number], Nonalcoholic Fatty Liver Disease Diet Additional Instructions: See your regular doctor for further testing if symptoms return Referrals: Maura Steve, PAC [Primary Care Provider] - <Carlos Lawrence - Last Filed: 02/02/17 01:26> Medical Problem HPI - Immun/Allergies/Home Medications Immunizations: IMMUNIZATION HX Immunizations Up to Date Yes History of Influenza Vaccine No Hx Pneumococcal Vaccination No ED Progress - Vital Signs Vital Signs: Vital Signs 02/01/17 02/01/17 02/01/17 18:50 19:40 20:24 Temperature 37.8 C H 37.7 C H 36.7 C Pulse Rate 107 H 81 106 H Respiratory 16 16 16 Rate Blood Pressure 148/111 118/81 118/64 O2 Sat by Pulse 98 96 96 Oximetry 02/01/17 02/01/17 02/01/17 21:07 22:02 23:06 Temperature 37.1 C 36.8 C 36.3 C L Pulse Rate 103 H 100 103 H Respiratory 16 15 16 Rate Blood Pressure 123/69 116/59 144/74 O2 Sat by Pulse 96 96 95 Oximetry - CT/Ultrasound CT/Ultrasound Narrative: CT abd/ pelvis: Fatty liver, unremarkable appendix, mild fecal retention. No renal calculi or hydronephrosis - Progress/Reassessment Progress Note-Subjective: 02/02/17 00:[address] results and liver enzyme elevation. Pt is aware of fatty liver diagnosis and is trying to change his diet. Encouragement to continue to change diet given.
[2017-02-01 21:00] LABS: Anion Gap 15.2 mmol/L (6.8-13.8); BUN/Creatinine Ratio 10.6 (9.0-21.6); Bilirubin, Total 0.7 mg/dL (0.0-1.1); CRP 2.4 mg/dL (0.0-0.9); Ca. Corrected For Albumin 8.8 mg/dL (8.4-10.2); Calcium * 9.1 mg/dL (7.9-10.9); Carbon Dioxide 24.9 mmol/L (24-32.6); Potassium 4.1 mmol/L (3.4-4.6); Total Protein 8.6 gm/dL (6.2-8.2)
[2017-02-01] MEDS ORDERED: DIATRIZOATE MEGLUMINE, SODIUM 30 ML BTL PO ONE (21:15)
[2017-02-01] MEDS ORDERED: DIATRIZOATE MEGLUMINE, SODIUM 30 ML BTL ONE (21:20)
[2017-02-01] MEDS ORDERED: ONDANSETRON 4 MG TAB.RAPDIS PO ONE (21:50)
[2017-02-01] MEDS ORDERED: ONDANSETRON 4 MG TAB.RAPDIS ONE (21:56)
[2017-02-02 00:33] VITALS: BP 126/86
== END 2017-02-02 00:24 | disposition home or self-care (01) ==
LOC: ER 18:42
DX: R10.11 Right upper quadrant pain (principal); F17.200 Nicotine dependence, unspecified, uncomplicated; E11.9 Type 2 diabetes mellitus without complications

== ENCOUNTER 2017-03-04 10:22 | Emergency (ER) | payer SELFPAY ==
--- NOTE | 2017-03-04 10:40 | ERNOTE ---
Medical Problem HPI - Narrative Date of Service: 03/04/17 - General Chief Complaint: Nausea/Vomiting Time Seen by Provider: 03/04/17 10:39 Source: patient, family, RN notes reviewed Exam Limitations: no limitations - Immun/Allergies/Home Medications Immunizations: IMMUNIZATION HX Immunizations Up to Date Yes History of Influenza Vaccine No Hx Pneumococcal Vaccination No Allergies/Adverse Reactions: Allergies Sulfa (Sulfonamide Antibiotics) Allergy (Unknown, Verified 02/01/17 18:53) Home Medications: HOME MEDICATIONS metFORMIN HCL [Glucophage] 1,000 mg PO BID 06/02/16 [Last Taken Unknown] Atorvastatin Calcium 20 mg PO DAILY 11/07/16 [Last Taken Unknown] Ondansetron [Zofran Odt] 8 mg PO Q8H PRN #12 tab 03/04/17 [Last Taken Unknown] sitaGLIPtin PHOSPHATE [Januvia] 50 mg PO BID 03/04/17 [Last Taken Unknown] - Pain Score Pain Score #1 Pain Score: 0 - History of Present History Narrative: 26 y/o male sent to the ED from the walk-in clinic for vomiting and diarrhea. He reported having chest tightness on arrival to the clinic so he was sent here. He began having vomiting and diarrhea last evening. He has not had diarrhea today but reports vomiting when he got to the clinic. The chest tightness began while he was vomiting. He reports it is only currently present if he pushes on that area in his chest. He denies abdominal pain. He has been here 6 times in the past year for vomiting and/or diarrhea. His significant other reports that whenever he has these symptoms that his work requires him to be seen to determine if he is "contagious." Date (Duration): 03/03/17 Review of Systems - Review of Systems Constitutional: Present: malaise. Absent: fever, chills EYE: Present: no symptoms reported ENT: Present: no symptoms reported Respiratory: Absent: shortness of breath, cough Cardiology: Absent: palpitations, syncope, edema Gastrointestinal/Abdominal: Present: nausea, vomiting, diarrhea. Absent: abdominal pain Genitourinary: Absent: dysuria, hematuria, decreased urinary output Musculoskeletal: Absent: muscle pain, joint pain Skin: Absent: rash, lesions Neurological: Absent: headache, dizziness/light-headedness, weakness Endocrine: Present: no symptoms reported Hematologic/Lymphatic: Absent: easy bruising, easy bleeding Psych: Present: no symptoms reported - Patient's Past Medical History Patient History - Medical: Anxiety, Diabetes Type 2, Depression, Obesity, Other Patient History - Cardiac/Respiratory: Hyperlipidemia Patient History - Cancer: No Hx of Cancer Patient History - Surgical Procedures: Ear Tubes, T & A, Other Patient History - Other: None - Social History Living Situations: home Abuse History: No History of abuse Psych History: Hx of Anxiety, Hx of Depression Smoking Status: Current every day smoker Have you smoked in the past 12 months: Yes Do you dip or chew tobacco: No Alcohol Use: rarely Drug Use: none - Immunizations Immunizations Up to Date: Yes Hx Pneumococcal Vaccination: No History of Influenza Vaccine: No Physical Exam - Physical Exam General Appearance: Present: alert, no apparent distress, obese, other - Disheveled, poor hygiene Head Exam: Present: normal inspection Eye Exam: Normal inspection: bilateral Neck: Present: normal inspection, nontender, supple Respiratory: Present: no respiratory distress, normal breath sounds, no accessory muscle use, lungs clear Cardiovascular/Chest: Present: regular rate, rhythm, no murmur, normal peripheral pulses Gastrointestinal/Abdominal: Present: normal bowel sounds, nontender, soft, distended - Obese. Absent: guarding, rebound, mass Extremity Exam: Present: normal inspection, normal range of motion, no edema Neurological Exam: Present: alert, oriented, normal mood/affect, no motor/ sensory deficits Skin Exam: Present: normal color, warm/dry ED Progress - Results and Orders Patient's Lab Results:: I have reviewed the patient's lab results. - Vital Signs Patient's Vital Signs:: I have reviewed the patient's vital signs. Vital Signs: Vital Signs 03/04/17 10:26 Temperature 37.4 C Pulse Rate 93 Respiratory 17 Rate Blood Pressure 137/73 O2 Sat by Pulse 96 Oximetry - X-Ray X-Ray #1 X-Ray: abdomen Interpretation: Reviewed by me X-ray Comments: No obstruction, abnormal bowel gas pattern suggestive of colitis. - Progress/Reassessment Chief Complaint: Nausea/Vomiting Progress:: Improved Plan - Plan Plan: No vomiting or diarrhea while in the ED. Nausea improved with Zofran. No abdominal pain or tenderness on exam. Discussed test results and indications for needing f/u. Departure - Departure Clinical Impression: Viral gastroenteritis Disposition: Home Follow Up Needed Condition: Stable Instructions: Viral Gastroenteritis, Adult, [id number], Form - Excuse from Work, School, or Physical Activity Additional Instructions: Clear liquid diet today - progress as discussed Do not take medications to stop diarrhea Return to ER if symptoms worsen or do not improve in 48 hours Prescriptions: Ondansetron [Zofran Odt] 8 mg PO Q8H PRN #12 tab PRN Reason: Nausea
[2017-03-04] MEDS ORDERED: ONDANSETRON 4 MG TAB.RAPDIS PO ONE (10:48)
[2017-03-04] MEDS ORDERED: ONDANSETRON 4 MG TAB.RAPDIS ONE (10:50)
[2017-03-04 11:02] LABS: Hemoglobin 14.4 gm/dL (13.5-18.0); Mean Cell Volume 82.7 fl (78-100); Mean Corpuscular Hemoglobin 28.3 pg (27-31); Mean Corpuscular Hgb Conc 34.3 g/dl (32-36); Mean Platelet Volume 9.8 fl (6.0-9.5); Neutrophil # 10.9 K/mm3 (1.3-6.0); Neutrophil % 69.5 % (42-75.0); Platelet Count 280 K/mm3 (150-450); Red Blood Count 5.08 M/mm3 (4.7-6.0); Red Cell Distribution Width 12.4 % (11.5-14.0); White Blood Count 15.7 K/mm3 (4.0-10.5)
[2017-03-04 11:14] LABS: Albumin * 3.5 gm/dl (3.4-5.0); Anion Gap 12.9 mmol/L (6.8-13.8); BUN/Creatinine Ratio 9.6 (9.0-21.6); Bilirubin, Total 0.5 mg/dL (0.0-1.1); Calcium * 8.9 mg/dL (7.9-10.9); Carbon Dioxide 28.2 mmol/L (24-32.6); Potassium 4.1 mmol/L (3.4-4.6); Total Protein 7.6 gm/dL (6.2-8.2)
[2017-03-04 11:49] VITALS: BP 131/71
== END 2017-03-04 11:47 | disposition home or self-care (01) ==
LOC: ER 10:22
DX: A08.4 Viral intestinal infection, unspecified (principal); F17.200 Nicotine dependence, unspecified, uncomplicated; E78.5 Hyperlipidemia, unspecified; E11.9 Type 2 diabetes mellitus without complications

== ENCOUNTER 2017-03-13 12:29 | Emergency (ER) | payer SELFPAY ==
[2017-03-13] MEDS ORDERED: OFLOXACIN 50 DROP BTL LEFT EAR ONE (12:59)
[2017-03-13] MEDS ORDERED: OFLOXACIN 50 DROP BTL ONE ×2 (13:04→13:07)
--- NOTE | 2017-03-13 13:05 | ERNOTE ---
ENT HPI Date of Service: 03/13/17 Presenting Symptoms: other - Ear pain Time Seen by Provider: 03/13/17 12:50 Source: patient, family, RN notes reviewed Exam Limitations: no limitations - Immun/Allergies/Home Medications Immunizations: IMMUNIZATION HX Immunizations Up to Date Yes History of Influenza Vaccine No Hx Pneumococcal Vaccination No Allergies/Adverse Reactions: Allergies Allergy/AdvReac Type Severity Reaction Status Date / Time Sulfa (Sulfonamide Allergy Unknown Verified 03/13/17 12:43 Antibiotics) Home Medications: HOME MEDICATIONS metFORMIN HCL [Glucophage] 1,000 mg PO BID 06/02/16 [Last Taken Unknown] Atorvastatin Calcium 20 mg PO DAILY 11/07/16 [Last Taken Unknown] sitaGLIPtin PHOSPHATE [Januvia] 50 mg PO BID 03/04/17 [Last Taken Unknown] - History of Present Illness Narrative: 26 y/o male ambulatory to the ED for left ear pain that began last night. Date (Duration): 03/12/17 ENT Location: Present: ear (L) Prearrival Treatment: Present: no prearrival treatment Prior Treament: Reports: recently seen, similar symptoms before. Denies: currently on antibiotics Review of Systems - Review of Systems Constitutional: Absent: fever, chills EYE: Absent: eye pain, eye discharge ENT: Present: ear pain. Absent: ear discharge, nose congestion, sore throat Respiratory: Absent: shortness of breath, cough Cardiology: Present: no symptoms reported Gastrointestinal/Abdominal: Absent: nausea, vomiting Genitourinary: Present: no symptoms reported Musculoskeletal: Absent: muscle stiffness, neck pain Skin: Absent: rash, lesions, lumps Neurological: Absent: headache, dizziness/light-headedness Endocrine: Present: no symptoms reported Hematologic/Lymphatic: Present: no symptoms reported Psych: Present: no symptoms reported - Patient's Past Medical History Patient History - Medical: Anxiety, Diabetes Type 2, Depression, Obesity, Other Patient History - Cardiac/Respiratory: Hyperlipidemia Patient History - Cancer: No Hx of Cancer Patient History - Surgical Procedures: Ear Tubes, T & A, Other Patient History - Other: None - Social History Living Situations: home Abuse History: No History of abuse Psych History: Hx of Anxiety, Hx of Depression Smoking Status: Current every day smoker Have you smoked in the past 12 months: Yes Alcohol Use: rarely Drug Use: none - Immunizations Immunizations Up to Date: Yes Hx Pneumococcal Vaccination: No History of Influenza Vaccine: No Physical Exam - Physical Exam General Appearance: Present: alert, no apparent distress, obese, other - Disheveled Head Exam: Present: normal inspection Eye Exam: Normal inspection: bilateral Ears, Nose, Throat: Present: normal pharynx, other - Left external otic canal inflammed and painful. Absent: hearing decreased, abnormal TM (R), abnormal TM (L), cerumen impaction, nasal congestion, sinus pain/drainage, pharyngeal erythema Neck: Present: normal inspection, nontender, supple. Absent: lymphadenopathy (R ), lymphadenopathy (L) Respiratory: Present: no respiratory distress, normal breath sounds, no accessory muscle use, lungs clear Cardiovascular/Chest: Present: regular rate, rhythm, no murmur Neurological Exam: Present: alert, oriented, normal mood/affect, no motor/ sensory deficits Skin Exam: Present: normal color, warm/dry ED Progress - Vital Signs Patient's Vital Signs:: I have reviewed the patient's vital signs. Vital Signs: Vital Signs 03/13/17 03/13/17 12:37 12:45 Temperature 36.2 C L 36.2 C L Pulse Rate 103 H 103 H Respiratory 14 14 Rate Blood Pressure 140/93 140/93 O2 Sat by Pulse 96 96 Oximetry - Progress/Reassessment Chief Complaint: Earache Progress:: Unchanged Departure Clinical Impression: Otitis externa of left ear Qualifiers: Otitis externa type: other infective Chronicity: acute Qualified Code(s): H60.392 - Other infective otitis externa, left ear - Departure Disposition: Home self-care Condition: Stable Instructions: Otitis Externa, [id number] Additional Instructions: Use ear drops as directed - 10 drops in the left ear once a day for 7 days Tylenol and/or ibuprofen for pain
[2017-03-13 13:14] VITALS: BP 140/77
== END 2017-03-13 13:14 | disposition home or self-care (01) ==
LOC: ER 12:29
DX: H60.502 Unspecified acute noninfective otitis externa, left ear (principal); F17.200 Nicotine dependence, unspecified, uncomplicated; E78.5 Hyperlipidemia, unspecified; E11.9 Type 2 diabetes mellitus without complications

== ENCOUNTER 2017-03-27 23:11 | Emergency (ER) | payer MEDICAID ==
--- NOTE | 2017-03-28 00:10 | ERNOTE ---
Allergy Symptoms - ER Presenting Symptoms: face swelling - lips Time Seen by Provider: 03/28/17 00:07 Source: patient, RN notes reviewed Exam Limitations: no limitations Immunizations: IMMUNIZATION HX Immunizations Up to Date Yes History of Influenza Vaccine No Hx Pneumococcal Vaccination No Allergies/Adverse Reactions: Allergies Sulfa (Sulfonamide Antibiotics) Allergy (Unknown, Verified 03/13/17 12:43) Home Medications: HOME MEDICATIONS metFORMIN HCL [Glucophage] 1,000 mg PO BID 06/02/16 [Last Taken Unknown] Atorvastatin Calcium 20 mg PO DAILY 11/07/16 [Last Taken Unknown] sitaGLIPtin PHOSPHATE [Januvia] 50 mg PO BID 03/04/17 [Last Taken Unknown] diphenhydrAMINE HCL [Benadryl] 50 mg PO Q6H PRN #20 capsule 03/28/17 [Last Taken Unknown] predniSONE [Prednisone] 3 tab PO DAILY #9 tab 03/28/17 [Last Taken Unknown] - History of Present Illness Narrative: Patient with swelling and numbness to his lower lip. No trauma, no insect bite, no known infection. Started this morning, has progressively gotten worse. Does not take any Gautam Inhibitor drugs, is on Januvia, Metformin and Atorvastatin. It worsened 40 minutes prior to arrival, but he noted some changes this morning. 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 Absent: rash, dryness Neurological: Absent: anxiety, depressed, emotional problems - Patient's Past Medical History Patient History - Medical: Anxiety, Diabetes Type 2, Depression, Obesity, Other Patient History - Cardiac/Respiratory: Hyperlipidemia Patient History - Cancer: No Hx of Cancer Patient History - Surgical Procedures: Ear Tubes, T & A, Other Patient History - Other: None - Social History Living Situations: home Abuse History: No History of abuse Psych History: Hx of Anxiety, Hx of Depression Smoking Status: Current some day smoker Patient requests Smoking Cessation Consult: No Initiate information on Smoking Cessation: No Alcohol Use: rarely Drug Use: none - Immunizations Immunizations Up to Date: Yes Hx Pneumococcal Vaccination: No History of Influenza Vaccine: No Physical Exam - Physical Exam General Appearance: Present: wd/wn, alert, no apparent distress, obese Head Exam: Present: other - Swelling of lower lip Eye Exam: Normal inspection: bilateral, PERRL: bilateral, EOMI: bilateral Ears, Nose, Throat: Present: normal ENT inspection Neck: Present: normal inspection, nontender Respiratory: Present: no respiratory distress, normal breath sounds, no accessory muscle use Cardiovascular/Chest: Present: regular rate, rhythm, no murmur Gastrointestinal/Abdominal: Present: normal bowel sounds, nontender, nondistended, soft Back Exam: Present: normal inspection, normal range of motion Extremity Exam: Present: normal inspection, non-tender, normal range of motion Neurological Exam: Present: alert, oriented, normal mood/affect, no motor/ sensory deficits Skin Exam: Present: normal color, warm/dry, other - Lower lip swelling ED Progress - Vital Signs Patient's Vital Signs:: I have reviewed the patient's vital signs. Vital Signs: Vital Signs 03/27/17 03/27/17 23:30 23:36 Temperature 37.2 C Pulse Rate 92 Respiratory 16 18 Rate Blood Pressure 144/89 O2 Sat by Pulse 99 97 Oximetry - Progress/Reassessment Chief Complaint: Allergic Reaction Progress Note-Subjective: 03/28/17 00:34 Benadryl 50 mg IM Solu-medrol 125 mg Im Plan - Plan Plan: Discharge patient home with scripts Departure Clinical Impression: Angioedema of lips Qualifiers: Encounter type: initial encounter Qualified Code(s): T78.3XXA - Angioneurotic edema, initial encounter - Departure Disposition: Home self-care Condition: Good Instructions: Angioedema, [id number] Referrals: Evi,Maura, PAC [Primary Care Provider] - (3-5 days, sooner if your symptoms worsen) Prescriptions: diphenhydrAMINE HCL [Benadryl] 50 mg PO Q6H PRN #20 capsule PRN Reason: Allergic Reaction predniSONE [Prednisone] 3 tab PO DAILY #9 tab
[2017-03-28] MEDS ORDERED: diphenhydrAMINE HCL 50 MG/ML VIAL IM ONE (00:31)
[2017-03-28] MEDS ORDERED: METHYLPREDNISOLONE SOD SUCC/PF 125 MG/2 ML VIAL IM ONE (00:32)
[2017-03-28] MEDS ORDERED: METHYLPREDNISOLONE SOD SUCC/PF 125 MG/2 ML VIAL ONE (00:34)
[2017-03-28] MEDS ORDERED: diphenhydrAMINE HCL 50 MG/ML VIAL ONE (00:34)
[2017-03-28 01:50] VITALS: BP 117/76
== END 2017-03-28 00:50 | disposition home or self-care (01) ==
LOC: ER 23:11
DX: T78.3XXA Angioneurotic edema, initial encounter (principal); E11.39 Type 2 diabetes mellitus with other diabetic ophthalmic complication; E78.5 Hyperlipidemia, unspecified; F17.200 Nicotine dependence, unspecified, uncomplicated

== ENCOUNTER 2017-05-28 15:32 | Emergency (ER) | payer MEDICAID ==
--- NOTE | 2017-05-28 15:53 | ERNOTE ---
Abdominal HPI - Narrative Date of Service: 05/28/17 - General Time Seen by Provider: 05/28/17 15:40 Source: patient Exam Limitations: no limitations - Immun/Allergies/Home Medications Immunizatons: IMMUNIZATION HX Immunizations Up to Date Yes History of Influenza Vaccine No Hx Pneumococcal Vaccination No Allergies/Adverse Reactions: Allergies Sulfa (Sulfonamide Antibiotics) Allergy (Unknown, Verified 05/28/17 15:45) Home Medications: HOME MEDICATIONS metFORMIN HCL [Glucophage] 1,000 mg PO BID 06/02/16 [Last Taken Unknown] sitaGLIPtin PHOSPHATE [Januvia] 100 mg PO BID 03/04/17 [Last Taken Unknown] Ranitidine HCl [Zantac] 150 mg PO BID #60 tab 05/28/17 [Last Taken Unknown] - History of Present Illness Narrative: Pt. comes in with c/o nausea and vomiting twice since 12 hours ago. Pt. states that he has been able to eat and drink without difficulty but that he had to call into work because he is still a little dizzy. Pt. denies any fever, diarrhea, SOB, CP, recent illness or injury but does state that he has had this several times in the past and often forgets his diabetes medications and is unsure of what his blood sugar is at this time. Review of Systems - Review of Systems Constitutional: Present: fatigue. Absent: recent illness, fever, chills, weakness, malaise EYE: Present: no symptoms reported. Absent: eye pain, eye discharge, blurred vision, double vision, vision changes ENT: Present: no symptoms reported. Absent: ear pain, ear discharge, nose pain , nose congestion, nasal drainage, sore throat Respiratory: Present: no symptoms reported. Absent: shortness of breath, cough , wheezing Cardiology: Present: no symptoms reported. Absent: chest pain, palpitations, edema Gastrointestinal/Abdominal: Present: nausea, vomiting. Absent: diarrhea, constipation, abdominal pain, eating less, drinking less Genitourinary: Present: no symptoms reported. Absent: frequency, pain, dysuria Musculoskeletal: Present: no symptoms reported. Absent: back pain, muscle pain , muscle stiffness Skin: Present: no symptoms reported. Absent: rash, dryness, lesions, lumps Neurological: Present: dizziness/light-headedness. Absent: depressed, emotional problems, headache, seizure, weakness, numbness, tingling Endocrine: Present: increased hunger, increased thirst, increased urine All Other Systems: All systems neg except as marked - Patient's Past Medical History Patient History - Medical: Anxiety, Diabetes Type 2, Depression, Obesity Patient History - Cardiac/Respiratory: Hyperlipidemia Patient History - Cancer: No Hx of Cancer Patient History - Surgical Procedures: Ear Tubes, T & A Patient History - Other: None - Social History Living Situations: home Abuse History: No History of abuse Psych History: Hx of Anxiety, Hx of Depression Smoking Status: Current every day smoker Have you smoked in the past 12 months: Yes Do you dip or chew tobacco: No Alcohol Use: rarely Drug Use: none - Immunizations Immunizations Up to Date: Yes Hx Pneumococcal Vaccination: No History of Influenza Vaccine: No Physical Exam - Physical Exam General Appearance: Present: wd/wn, alert, no apparent distress Head Exam: Present: normal inspection, no evidence of injury Eye Exam: Normal inspection: bilateral, PERRL: bilateral, EOMI: bilateral Ears, Nose, Throat: Present: normal ENT inspection, normal pharynx Neck: Present: normal inspection, nontender, supple, full range of motion. Absent: limited range of motion Respiratory: Present: no respiratory distress, normal breath sounds, no accessory muscle use, chest nontender, lungs clear Cardiovascular/Chest: Present: regular rate, rhythm, no murmur, normal peripheral pulses Gastrointestinal/Abdominal: Present: normal bowel sounds, nontender, nondistended, soft, no organomegaly Back Exam: Present: normal inspection, normal range of motion, no CVA tenderness , no vertebral tenderness Extremity Exam: Present: normal inspection, non-tender, normal range of motion, no edema Neurological Exam: Present: alert, oriented, normal mood/affect, no motor/ sensory deficits Skin Exam: Present: normal color, warm/dry ED Progress - Results and Orders Patient's Lab Results:: I have reviewed the patient's lab results. - Vital Signs Patient's Vital Signs:: I have reviewed the patient's vital signs. Vital Signs: Vital Signs 05/28/17 15:42 Temperature 37.1 C Pulse Rate 100 Respiratory 15 Rate Blood Pressure 129/66 O2 Sat by Pulse 97 Oximetry - Progress/Reassessment Progress:: Improved Departure Clinical Impression: Nausea and vomiting due to hyperglycemia - Departure Disposition: Home self-care Condition: Good Instructions: Nausea, Adult, Hyperglycemia, [id number], Form - Excuse from Work, School, or Physical Activity Additional Instructions: Please take your diabetes medications as prescribed prese start taking zantac daily. Referrals: Maura Steve PAC [Primary Care Provider] - Prescriptions: Ranitidine HCl [Zantac] 150 mg PO BID #60 tab
[2017-05-28 16:04] LABS: Hematocrit 44.6 % (42.0-52.0); Hemoglobin 15.5 gm/dL (13.5-18.0); Mean Cell Volume 80.7 fl (78-100); Mean Corpuscular Hgb Conc 34.8 g/dl (32-36); Neutrophil # 7.2 K/mm3 (1.3-6.0); Neutrophil % 60.6 % (42-75.0); Platelet Count 267 K/mm3 (150-450); Red Blood Count 5.53 M/mm3 (4.7-6.0); Red Cell Distribution Width 12.3 % (11.5-14.0); White Blood Count 11.8 K/mm3 (4.0-10.5)
[2017-05-28 16:17] LABS: ALT 192 U/L (19-67); AST 53 U/L (0-48); Albumin * 3.8 gm/dl (3.4-5.0); Alkaline Phosphatase * 139 U/L (50-170); Anion Gap 14.9 mmol/L (6.8-13.8); Bilirubin, Total 0.4 mg/dL (0.0-1.1); Blood Urea Nitrogen 9 mg/dL (6-23); Ca. Corrected For Albumin 8.8 mg/dL (8.4-10.2); Carbon Dioxide 24.1 mmol/L (24-32.6); Chloride 100 mmol/L (97-106); Glucose * 274 mg/dL (70-110); Sodium 135 mmol/L (132-142); Total Protein 8.3 gm/dL (6.2-8.2)
[2017-05-28 16:21] VITALS: BP 113/62
== END 2017-05-28 16:24 | disposition home or self-care (01) ==
LOC: ER 15:32
DX: R73.9 Hyperglycemia, unspecified (principal); R11.2 Nausea with vomiting, unspecified; F17.200 Nicotine dependence, unspecified, uncomplicated